=== PATIENT | female | born 1955 | race Caucasian/White ===

== ENCOUNTER → 2017-05-19 | Outpatient (CLI) | payer BC ==
[~2017-05-19] MED LIST: EVAMIST1.53 MG/Ac TD; IBUPROFEN200 M1 PO; PRILOSEC 20MG20 MG PO; SYNTHROID PO
== END ==
LOC: COL.RAD 08:54
DX: K44.9 Diaphragmatic hernia without obstruction or gangrene (principal); K21.9 Gastro-esophageal reflux disease without esophagitis

== ENCOUNTER → 2017-10-29 | Outpatient (CLI) | payer BC | LOC: MC.RAD 11:00 | DX: Z12.31 Encounter for screening mammogram for malignant neoplasm of breast (principal) ==

== ENCOUNTER → 2019-09-21 | Outpatient (CLI) | payer BC | LOC: MC.RAD 06:54 | DX: Z12.31 Encounter for screening mammogram for malignant neoplasm of breast (principal) ==

== ENCOUNTER → 2023-01-11 | Outpatient (CLI) | payer MEDICARE, BC | LOC: MC.RAD 07:07 | DX: Z12.31 Encounter for screening mammogram for malignant neoplasm of breast (principal) ==

== ENCOUNTER 2024-07-02 12:32 | Emergency (ER) | payer MEDICARE, BC ==
[~2024-07-02 12:32] MED LIST changes: +COZAAR 25MG25 MG/TAB PO; +ESTROGEL0.06% TOP; +LAMISIL250 M1 PO; +SYNTHROID0.125 MG/T PO
[2024-07-02 12:44] VITALS: TEMP 98
[2024-07-02 13:45] VITALS: BP 142/70; PULSE 80
== END 2024-07-02 13:45 | disposition home or self-care (01) ==
LOC: COL.ER 12:32
DX: S06.0XAA Concussion with loss of consciousness status unknown, initial encounter (principal); S00.81XA Abrasion of other part of head, initial encounter; V28.49XA Other motorcycle driver injured in noncollision transport accident in traffic accident, initial encounter; Y93.55 Activity, bike riding; Y92.410 Unspecified street and highway as the place of occurrence of the external cause